=== PATIENT | male | born 1995 | race Caucasian/White ===

== ENCOUNTER 2020-08-25 14:47 | Emergency (ER) | payer MEDICAID ==
[~2020-08-25] VITALS: Ht 180.3 cm; Wt 70.3 kg
[2020-08-25] MEDS ORDERED: IV NS 0.9% 1,000 ML BAG IV ONE (15:30)
--- NOTE | 2020-08-25 15:47 | NUR ---
patient refused blood draw, notified and aware.
--- NOTE | 2020-08-25 15:47 | NUR ---
PATIENT IS REFUSING TO HAVE BLOOD DRAWN. MADE AWARE.
--- NOTE | 2020-08-25 15:51 | NUR ---
Patient does not wish to proceed with medical care recommended by Dr. Dickey. Patient given information related to possible complications, up to and including , which could occur as a result of leaving the hospital at this time. Patient verbalizes understanding of risks involved due to leaving against medical advice. Patient has signed AMA form.
[2020-08-25 15:54] VITALS: BP 113/67
== END 2020-08-25 15:55 | disposition left against medical advice (07) ==
LOC: ER 14:47
DX: R13.10 Dysphagia, unspecified (principal); R10.13 Epigastric pain; F41.9 Anxiety disorder, unspecified; Z88.8 Allergy status to other drugs, medicaments and biological substances